=== PATIENT | male | born 1970 | race Caucasian/White ===

== ENCOUNTER → 2016-09-10 | Outpatient (CLI) | payer BC | END | disposition home or self-care (01) | LOC: GMAB 11:40 | PROVIDERS: ATTEND Family Medicine | DX: Z00.00 Encounter for general adult medical examination without abnormal findings (principal) ==

== ENCOUNTER → 2016-09-12 | Outpatient (CLI) | payer BC | END | disposition home or self-care (01) | LOC: GMAB 14:10 | PROVIDERS: ATTEND Family Medicine | DX: M25.50 Pain in unspecified joint (principal) ==

== ENCOUNTER → 2016-11-20 | Outpatient (CLI) | payer BC ==
--- NOTE | 2016-11-21 08:42 | MRI ---
EXAM DESCRIPTION: MRI-Brain w/o Contrast CLINICAL HISTORY: G20. Parkinson's disease COMPARISON: None available TECHNIQUE: Non contrast MRI of the brain is performed according to our usual protocol including multiplanar multi sequence technique. FINDINGS: No hemorrhage, mass effect, diffusion restriction, or acute infarction is present. There is normal configuration of the ventricles and sulci. The brain parenchyma and ventricles are normal for the patient's age. No abnormal extra-axial fluid collections are present. Normal flow voids are present. The calvarium is intact. Visualized paranasal sinuses and mastoid air cells are clear. IMPRESSION: Unremarkable noncontrast MRI of the brain. Electronically signed by: Jesse Chew MD 11/21/2016 8:40 AM CDT
== END | disposition home or self-care (01) ==
LOC: MRI 07:03
PROVIDERS: ATTEND Surgery
DX: G20 Parkinson's disease (principal)